=== PATIENT | female | born 1990 | race Caucasian/White ===

== ENCOUNTER 2018-05-29 02:25 | Inpatient (IN) | payer OTHER ==
[2018-05-29 03:04] LABS: BILIRUBIN,URINE NEGATIVE (NEGATIVE); GLUCOSE, URINE (UA) NEGATIVE (NEGATIVE); KETONES,URINE (UA) NEGATIVE (NEGATIVE); LEUKOCYTE ESTERASE, URINE SMALL (NEGATIVE); NITRITE,URINE NEGATIVE (NEGATIVE); OCCULT BLOOD,URINE MODERATE (NEGATIVE); PROTEIN,URINE NEGATIVE (NEGATIVE); UROBILINOGEN,URINE 1 (NORMAL) E.U./dL (NORMAL)
[2018-05-29 03:05] LABS: CLARITY,URINE HAZY (CLEAR)
[2018-05-29 03:13] LABS: BACTERIA,URINE Few /HPF (None Seen); SQUAMOUS EPITHELIAL CELL,UR MOD Squamous (<= Few)
[2018-05-29 03:23] LABS: RUPTURE OF MEMBRANES PLUS POSITIVE (NEGATIVE)
[2018-05-29] MEDS ORDERED: SODIUM CHLORIDE FLUSH 0.9% 10 ML SYRINGE IVP PRN (03:31)
[2018-05-29] MEDS: LACTATED RINGERS 1,000 ML IV SCH ×2 (03:56→10:10)
[2018-05-29] MEDS ORDERED: ONDANSETRON 4 MG/2 ML VIAL IVP PRN ×2 (04:03→05:31)
[2018-05-29 04:18] LABS: BASOPHILS % (AUTO) 0.2 %; EOSINOPHILS % (AUTO) 0.2 %; HGB - HEMOGLOBIN 12.3 g/dL (12.0-16.0); LYMPHOCYTES # (AUTO) 1.9 10^3/uL (1.5-3.5); LYMPHOCYTES % (AUTO) 10.1 %; MEAN CORPUSCULAR HEMOGLOBIN 29.2 pg (27.0-31.0); MEAN CORPUSCULAR HGB CONC 33.4 g/dL (32.0-36.0); MEAN CORPUSCULAR VOLUME 87.4 fL (81.0-99.0); MEAN PLATELET VOLUME 7.2 fL (7.9-10.8); MONOCYTES % (AUTO) 5.2 %; NEUTROPHILS # (AUTO) 15.6 10^3/uL (1.5-6.6); NEUTROPHILS % (AUTO) 84.3 %; PLT - PLATELET COUNT 406 10^3/uL (130-450); RED CELL DISTRIBUTION WIDTH 14.5 % (12.0-15.0); WHITE BLOOD COUNT 18.5 x10^3/uL (4.8-10.8)
[2018-05-29] MEDS ORDERED: fent/BUPIV 2 MCG/0.125% 250 ML EP ONE (04:45)
[2018-05-29] MEDS ORDERED: MINERAL OIL LIGHT 10 ML MC ONE (05:20)
[2018-05-29] MEDS ORDERED: LIDOCAINE 1% 50 ML MDV ONE (05:20)
[2018-05-29] MEDS ORDERED: miSOPROStol 100 MCG TABLET ONE (05:20)
[2018-05-29] MEDS ORDERED: miSOPROStol 200 MCG TABLET ONE (05:21)
[2018-05-29] MEDS ORDERED: diphenhydrAMINE INJ 50 MG/ML VIAL IVP PRN (05:31)
[2018-05-29] MEDS ORDERED: fent/BUPIV 2 MCG/0.125% 250 ML EP PRN (05:31)
[2018-05-29] MEDS ORDERED: NALBUPHINE 10 MG/ML AMP IVP PRN (05:31)
--- NOTE | 2018-05-29 05:34 | ANESTHESIA ---
Pre-Anesthesia VS, & Labs - Diagnosis term labor, IUP - Procedure EDUARDO Vital Signs: Temp Pulse Resp BP Pulse Ox 36.9 C 88 20 139/86 H 100 05/29/18 02:41 05/29/18 02:41 05/29/18 02:41 05/29/18 02:41 05/29/18 02:41 Height 5 ft 6 in Weight (kg) 89.358 kg - NPO Last Fluid Intake: clears t/o night - Is Patient ?: Yes - Lab Results Current Lab Results: Laboratory Tests 05/29/18 04:00: WBC 18.5 H, RBC 4.20, Hgb 12.3, Hct 36.7 L, MCV 87.4, MCH 29.2, MCHC 33.4, RDW 14.5, Plt Count 406, MPV 7.2 L, Neut # (Auto) 15.6 H, Lymph # (Auto) 1.9, [place] # (Auto) 1.0, Eos # (Auto) 0.0, Baso # (Auto) 0.0, Absolute Nucleated RBC 0.00, Nucleated RBC % 0.0 Fish Bones: 05/29/18 04:00 Home Medications and Allergies Active Medications Lactated Ringer's (Lr) 1,000 mls @ 150 mls/hr IV .Q6H40M [facility] Last Admin: 05/29/18 03:56 Dose: 150 mls/hr Ondansetron HCl (Zofran Inj) 4 mg IVP Q4HR PRN PRN Reason: Nausea / Vomiting Last Admin: 05/29/18 04:06 Dose: 4 mg Sodium Chloride (Normal Saline Flush 0.9%) 10 ml IVP PRN PRN PRN Reason: NEEDED PER PROVIDER ORDERS Sodium Chloride (Normal Saline Flush 0.9%) 10 ml IVP 0100,0900,1700 [facility] Allergies/Adverse Reactions: Allergies Allergy/AdvReac Type Severity Reaction Status Date / Time No Known Drug Allergies Allergy Verified 05/29/18 03:42 Anes History & Medical History - Anesthetic History Anesthesia Complications: reports: No previous complications Family history of Anesthesia Complications: Denies Family history of Malignant Hyperthermia: Denies - Medical History Cardiovascular: reports: None Pulmonary: reports: None Gastrointestinal: reports: None Urinary: reports: None Neuro: reports: None Musculoskeletal: reports: None Endocrine/Autoimmune: reports: None Smoking Status: Never smoker - Surgical History Eyes Ears Nose Throat (EENT): Tonsil/Adenoidectomy - Obstetrical History : 1 Exam General: Alert, Oriented x3, Cooperative Dental: WNL Mouth Openin Fingerbreadth Neck Mobility: Normal Mallampati classification: II Plan Anesthesia Type: Epidural Consent for Procedure(s) Verified and Reviewed: Yes Code Status: Attempt Resuscitation ASA classification: 2-Mild systemic disease Is this case an emergency?: No
--- NOTE | 2018-05-29 08:32 | PROVIDER PROGRESS NOTE ---
Subjective - Prog Note Date Prog Note Date: 05/29/18 Prog Note Time: 08:30 - Subjective Subjective: Patient sitting in bed. Family members at bedside. Epidural in place and working. May be feeling some contractions worsening. Objective - Vital Signs/Intake & Output Vital Signs: Vital Signs x48h Temp Pulse Resp BP Pulse Ox 05/29/18 02:41 98.5 F 88 20 139/86 H 100 Intake & Output: Intake & Output 05/26/18 05/27/18 05/28/18 05/29/18 23:59 23:59 23:59 23:59 Output Total 75 Balance -75 - Objective General Appearance: positive: No acute distress Eyes Bilateral: positive: Normal inspection Respiratory: positive: No respiratory distress, Breath sounds nml Cardiovascular: positive: Regular rate & rhythm, No murmur - Lab Results Fish Bones: 05/29/18 04:00 Other Labs: Lab Results x24hrs 05/29/18 05/29/18 05/29/18 Range/Units 04:00 02:47 02:17 WBC 18.5 H (4.8-10.8) x10^3/uL RBC 4.20 (4.20-5.40) 10^6/uL Hgb 12.3 (12.0-16.0) g/dL Hct 36.7 L (37.0-47.0) % MCV 87.4 (81.0-99.0) fL MCH 29.2 (27.0-31.0) pg MCHC 33.4 (32.0-36.0) g/dL RDW 14.5 (12.0-15.0) % Plt Count 406 (130-450) 10^3/uL MPV 7.2 L (7.9-10.8) fL Neut # (Auto) 15.6 H (1.5-6.6) 10^3/uL Lymph # (Auto) 1.9 (1.5-3.5) 10^3/uL [place] # (Auto) 1.0 (0.0-1.0) 10^3/uL Eos # (Auto) 0.0 (0.0-0.7) 10^3/uL Baso # (Auto) 0.0 (0.0-0.1) 10^3/uL Absolute Nucleated RBC 0.00 x10^3/uL Nucleated RBC % 0.0 /100WBC Urine Color YELLOW Urine Clarity HAZY (CLEAR) Urine pH 6.0 (5.0-7.5) PH Ur Specific [place] 1.025 (1.002-1.030) Urine Protein NEGATIVE (NEGATIVE) mg/dL Urine Glucose (UA) NEGATIVE (NEGATIVE) mg/dL Urine Ketones NEGATIVE (NEGATIVE) mg/dL Urine Occult Blood MODERATE H (NEGATIVE) Urine Nitrite NEGATIVE (NEGATIVE) Urine Bilirubin NEGATIVE (NEGATIVE) Urine Urobilinogen 1 (NORMAL) (NORMAL) E.U./dL Ur Leukocyte Esterase SMALL H (NEGATIVE) Urine RBC 6-10 H (0-5) /HPF Urine WBC 6-10 H (0-5) /HPF Ur Squamous Epith Cells MOD Squamous H (<= Few) Urine Bacteria Few (None Seen) /HPF Membranes Rupture POSITIVE A (NEGATIVE) Assessment/Plan - Problem List (1) membrane rupture Impression: 28 yo with a 39w4d IUP SROM Early active labor Epidural in place and working well Leukocytosis Expect Pitocin PRN
[2018-05-29] MEDS ORDERED: OXYTOCIN/SODIUM CHLORIDE 500 ML IV SCH (09:00)
--- NOTE | 2018-05-29 11:27 | HISTORY & PHYSICAL EXAMINATION ---
DATE OF ADMISSION: 05/29/2018 IDENTIFICATION: A 28-year-old G1, P0 with a 39-4/7 week intrauterine . HISTORY OF PRESENT ILLNESS: Patient of the [facility]. Unfortunately, they were on divert. She presented here for complaints of loss of fluid. ROM plus came back positive. heart tones are reassuring and category 1. Patient was admitted to the hospital and given an epidural for pain control. Patient's records show an unremarkable . She has been seen by Dr. Lacey again at [facility]. Her DOT is 06/01/2018 with an LMP of 08/12/2017. She has had good care since 5 weeks' gestation all through to her most recent visit 2 days ago. PAST MEDICAL HISTORY 1. Hypothyroidism in 2012 that has currently resolved. 2. Exercise-induced asthma. 3. Diabetes mellitus. PAST SURGICAL HISTORY: None. ALLERGIES: NO KNOWN DRUG ALLERGIES. MEDICATIONS 1. vitamins. 2. She does have a history of metformin 500 mg b.i.d. that apparently was discontinued in June 2017. SOCIAL HISTORY: She denies any current tobacco, alcohol or illicit drug use. Her is Praveen Polk. PAST OBSTETRICAL HISTORY AND CURRENT AND PAST GYNECOLOGICAL HISTORY: She has not had any abnormal Pap smears or sexually transmitted diseases. FAMILY HISTORY: Noncontributory at this time. REVIEW OF SYSTEMS: Negative unless otherwise stated. PHYSICAL EXAMINATION VITAL SIGNS: Stable. She is afebrile. GENERAL: Patient is a well-developed, well-nourished, female, in no apparent distress. She is alert and oriented x3. CARDIOVASCULAR: Regular. No murmurs or rubs. PULMONARY: Lungs are clear to auscultation bilaterally. ABDOMEN: Gravid, nontender. EFW was 8 pounds. heart tones currently a baseline of 130s. There is category 1 tracing and good accelerations. She is fredy spontaneously approximately every 3 minutes. PELVIC: Initial vaginal examination by OB RN shows she is 3 cm dilated, 50% effaced and -1 station. LABORATORY DATA: Shows that she is gonorrhea, chlamydia both negative. Sequential screen is within normal limits. Blood type is O positive, rubella is immune. Hepatitis B is negative as well as syphilis screening. HIV is nonreactive, as well as hepatitis C. One-hour GTT is 124 and GBS is negative. ASSESSMENT 1. A 28-year-old G1, P0 with a 39-4/7 week intrauterine . 2. Spontaneous rupture of membranes. PLAN 1. We will continue current care with epidural and start Pitocin as indicated. 2. Expect spontaneous vaginal delivery. TD: 05/29/2018 08:44 MTDD
--- NOTE | 2018-05-29 11:50 | HISTORY & PHYSICAL EXAMINATION ---
DATE OF SERVICE: 05/29/2018 Physician: Sanchez Asher MD DIAGNOSES 1. Term , in labor (39 weeks 4 days). 2. Ruptured membranes. 3. Pitocin augmentation. 4. Category 2 EFM tracing HISTORY OF PRESENT ILLNESS: Patient is a 28-year-old primigravida at 39 weeks and 4 days gestation based on last menstrual period and confirmed by our early ultrasound (DOT 06/01/2018). She has had regular care with Dr. Lacey at the [facility]. Thus far, the has proceeded without major problems. Patient is a known asthmatic, but it has been quiescent. She had subfertility and was given metformin trial, but never took it. She spontaneously achieved . Her Glucola challenge test is normal at 124. She has no headaches, right upper quadrant pain or edema. She has no fevers, chills, recent illness or symptoms consistent with urinary tract infection. She has no foul discharge. She describes the leakage as clear and nonfoul, without any significant bleeding. Reference [facility] clinic notes. BASIC OBSTETRIC LABORATORIES: Blood type O positive, antibody screen negative, rubella immune, RPR negative, hepatitis B surface antigen negative. GC/chlamydia negative, integrated screen normal. Urine culture negative. HIV negative. Hepatitis B surface antigen negative, hepatitis C & A screens negative. GBS negative. PAST MEDICAL HISTORY 1. Prior to , she carried a diagnosis of hypothyroid disorder, but recent thyroid panels are normal and she is not taking Synthroid. 2. Exercise asthma. Currently not active. Asthma is only a factor when she experiences bouts of bronchitis or URI. ALLERGIES: NO KNOWN DRUG ALLERGIES. MEDICATIONS: vitamins with iron. FAMILY HISTORY: Positive for diabetes in father. Hypertension, grandfather and grandmother. Epilepsy, father. SOCIAL HISTORY: Works at [employer]. Some college. No drug, tobacco or alcohol use currently. Limited alcohol exposure in early . Negative smoker or drug use. active [employer], has been stationed in [facility] for 4 years. REVIEW OF SYSTEMS CONSTITUTIONAL: Negative. HEENT: Negative. RESPIRATORY: Asthma, as noted above. CARDIAC: Negative. GASTROINTESTINAL: Negative. ENDOCRINE: Prior history of hypothyroidism. HEMATOLOGIC: No easy bleeding tendencies. NEUROLOGIC: Negative. MUSCULOSKELETAL: Negative. SKIN: Negative. PSYCHIATRIC: Negative. PHYSICAL EXAMINATION GENERAL: Alert, oriented, and comfortable in bed. VITAL SIGNS: Temperature 98.5, pulse 88, blood pressure 139/86, respirations 20, pulse oximetry 100%. HEENT: Supple neck. Dentition in good repair. No thyromegaly. No lymphadenopathy. BREASTS: Deferred. LUNGS: Clear to auscultation. Negative wheeze on forced exhalation. CARDIAC: Regular. Grade 2/6 systolic ejection murmur of . No gallop. ABDOMEN: Nondistended, soft, nontender. No organomegaly. No flank pain. UTERUS: Appropriate size, estimate 8 pound fetus in a vertex presentation. Moderate contractions every 3 minutes. EXTERNAL GENITALIA: Normal in appearance. No lesion. VAGINA: Clear amniotic fluid present. CERVIX: Six to 7 cm, +1 station, slight TAYLOR position, 100% effaced, mid position. HEART TRACING: Baseline 140s, moderate variability, occasional variable deceleration -20 with prompt recovery; very rare occurring late decelerations, mild. Cat 2 strip. NEUROLOGIC: Grossly intact. Cranial nerves intact. MUSCULOSKELETAL: No significant edema. SKIN: No obvious lesions. PSYCHIATRIC: Normal mood and affect. LABORATORIES: Admission hemoglobin 12.3, white count 18.5; platelets 406, neutrophilia. Urinalysis: Yellow, hazy, some occult blood and esterase, moderate squamous cells, all probable contamination. ASSESSMENT: This is a term primigravida who is entering active labor with some EFM changes, but nothing sustained or frankly worrisome. She has been ruptured for 10 hours and has no signs of infection such as fever, uterine tenderness, etc. She is currently being augmented with Pitocin at 3 units. Overall, there is forward progress and the head is descending. I believe bony pelvis will accommodate an 8-pound fetus. Discussed labor and particularly delivery in detail with patient and family. She will continue to discuss a delivery plan with Nursing. PLAN 1. Continue Pitocin augmentation. 2. We will monitor her progress of cervical dilatation and descent. 3. Continued EFM tracing monitor. Quality of tracing is very good and internal scalp lead or IUPC is not felt warranted. TD: 05/29/2018 10:45 [facility]
--- NOTE | 2018-05-29 12:46 | PROVIDER PROGRESS NOTE ---
Labor Progress Note - Uterine Monitoring Uterine Monitoring Mode: positive: External toco Contraction Frequency (min/apart): Every 2.5-3 minutes Contraction Intensity: positive: Moderate Uterine Resting Tone: positive: Soft - Monitoring Monitor Mode: positive: External ultrasound Heart Rate Baseline: 130-135 bpm Heart Rate Variability: positive: Moderate (6-25 bmp) Accelerations: positive: Present, 15x15 Decelerations: positive: None Strip Review: positive: Category I - Vaginal Exam Dilation (in cm): 9.5 Effacement (%): 100% Station: 3 Cervical Position: Anterior - Labor Progress Note Labor Progress Note/Additional Text: Epidural is dense and patient has labored down in comfort. For all intents, patient is currently complete. Previously noted decelerations have cleared and EFM tracing category 1 and stable. Began to instruct patient on pushing. Nursing working with family to instruct her coaches. Will begin pushing phase in a short while.
[2018-05-29] MEDS ORDERED: HYDROCORTISONE/PRAMOXINE 10 GM PR PRN (14:11)
[2018-05-29] MEDS ORDERED: diphenhydrAMINE 25 MG CAPSULE PO PRN (14:11)
[2018-05-29] MEDS ORDERED: HYDROcod/ACETAM 5/325 MG TABLET PO PRN (14:11)
[2018-05-29] MEDS ORDERED: WITCH HAZEL/GLYCERIN 1 EACH MED..PAD TOP PRN (14:11)
--- NOTE | 2018-05-29 14:19 | DELIVERY NOTE ---
Delivery Note - Labor Labor: positive: Augmented by oxytocin - Delivery Method Delivery Method: positive: Vacuum assist - Presentation Presentation: positive: Vertex, OA - occiput anterior (Moderate Caputand normal head flexion. Patient spontaneously rotated from TAYLOR to OA during second stage of labor) - Nuchal Cord Nuchal Cord: positive: Present (Very tight nuchal cord, required clamping and transection prior to delivery of the shoulders) - Anesthetic Anesthetic Type: Anesthetic: positive: Lidocaine - 1% plain Volume: positive: Other (15cc) - Amniotic Fluid Description Amniotic Fluid Description: positive: Clear - Vacuum Use Indication for Vacuum Use: positive: Suspicion of immediate or potential compromise (Sustained tachycardia & prior deep decelerations with slow recovery: In the middle part of the second stage patient had deep decelerations to the 80s with slow recovery (145 baseline); the baseline then shifted up to sustain levels of 180 bpm) Type of Vacuum Cup: positive: Other (Kiwe, solid cup) Vacuum Extraction: positive: Successful Number of pop-offs: 0 - Episiotomy Type Episiotomy Type: positive: None - Laceration Laceration: positive: Labial (Labial laceration extending from the majora to just inside the hymenal ring, total distance 3.5 cm and a depth of 1.5 cm. Labial skin very edematous) - Suture Suture Type: positive: Vicryl Suture Size: positive: 2-0, 3-0 - Delivery Outcome Delivery Outcome: positive: Livebirth (Living female weighing 3478 g, (7 pounds 10.6 ounces); Apgars 6 / 5 / 6 / 6 / 7 . Arterial cord pH 7.24 and base excess -3.1; venous cord pH 7.204 and base excess -6.) - [place]: positive: Placed in direct skin contact with mother, Suctioned, Bulb syringe, Stimulated, Warmed, Warmer used, Other (Pediatrics Dr. Lundberg summoned) sex: positive: Female - Cord Cord: positive: 3 vessels (Tight Cord, Factor in delivery) - Placenta Placenta: positive: Intact (Grade 2) - Estimated Blood Loss Estimated Blood Loss (in cc): 300 - Post Delivery Events Post Delivery Events: positive: Other (Pediatrics, Dr. Lundberg summoned to evaluate ) - Delivery Comments (Free Text/Narrative) Delivery Comments (Free Text/Narrative): Patient was allowed to labor down with the aid of a dense epidural and Pitocin augmentation. At 1230 hours, patient complained of pelvic pressure and was found to be essentially complete. We began instructions on appropriate nursing coaching and pushing techniques. Patient began pushing at 1300 hours. The patient pushed with good effort. She brought the head towards the perineum. Head was thought to be a slight TAYLOR with Moderate Caput & good flexion. Pelvis was reassessed and found to be adequate for a 8.0 pound infant. We continued push and stretch method of perineal massage using sterile mineral oil. Initially there were deep decelerations some of which had a slow recovery. The heart tracing deteriorated to sustained tachycardia in the 190s with peaks at times at 210. Variability became minimal. Maternal oxygen was applied. Use of a vacuum extractor to facilitate delivery was explained to the patient including mechanics, risks, benefits and possible alternatives. Patient gave verbal consent for vacuum trial. Respiratory therapy was called to the room as a backup precaution. At the time of vacuum application the head was OA and +3 station. Kiwi vacuum was brought to the field; applied to the flexion point; and pumped into the green zone of negative pressure. On the next series of contractions a moderate amount of traction was applied respecting the axis of the pelvis. Patient pushed with good effort and within 2 contractions the head delivered atraumatically. The head remained flush against the labia. Inspection found a tight nuchal cord. Nuchal cord was doubly clamped and transected. Shoulders were then delivered without difficulty. Delivery time 1353. Infant was on the maternal abdomen initially and then brought to the warmer. A relative trimmed the cord. Cord blood and cord gases were sent. Female genital tract was inspected. Left Labile laceration was found. The vagina was packed with sterile lap pad to provide visualization. The laceration was repaired with 2-0 and 3-0 Vicryl. After which the packing was removed. At 1308 placenta was delivered spontaneously intact. Inspection found it to be 3 vessel without any evidence of infection or abruption. Pitocin was running. Mother father and baby all bonded well. Sponge needle and instrument count was confirmed correct. Dr. Lundberg then was summoned to inspect the baby. Reference is notes.
[2018-05-29] MEDS ORDERED: LACTATED RINGERS 1,000 ML IV SCH (15:00)
[2018-05-29] MEDS: IBUPROFEN 600 MG TABLET PO SCH ×2 (16:16→22:38)
[2018-05-29] MEDS: SODIUM CHLORIDE FLUSH 0.9% 10 ML SYRINGE IVP SCH ×2 (18:43→18:45)
[2018-05-29] MEDS ORDERED: DOCUSATE SODIUM 100 MG CAPSULE PO SCH (21:00)
[2018-05-30] MEDS: DOCUSATE SODIUM 250 MG CAPSULE PO SCH ×3 (00:29→21:30)
[2018-05-30] MEDS: IBUPROFEN 600 MG TABLET PO SCH ×4 (04:38→22:03)
[2018-05-30 06:14] LABS: BASOPHILS % (AUTO) 0.3 %; EOSINOPHILS # (AUTO) 0.1 10^3/uL (0.0-0.7); EOSINOPHILS % (AUTO) 0.3 %; HGB - HEMOGLOBIN 10.4 g/dL (12.0-16.0); LYMPHOCYTES % (AUTO) 12.1 %; MEAN CORPUSCULAR HEMOGLOBIN 30.5 pg (27.0-31.0); MEAN CORPUSCULAR HGB CONC 34.5 g/dL (32.0-36.0); MEAN CORPUSCULAR VOLUME 88.5 fL (81.0-99.0); MONOCYTES # (AUTO) 1.1 10^3/uL (0.0-1.0); MONOCYTES % (AUTO) 6.5 %; NEUTROPHILS # (AUTO) 13.2 10^3/uL (1.5-6.6); NEUTROPHILS % (AUTO) 80.8 %; PLT - PLATELET COUNT 285 10^3/uL (130-450); WHITE BLOOD COUNT 16.4 x10^3/uL (4.8-10.8)
--- NOTE | 2018-05-30 08:50 | PROVIDER PROGRESS NOTE ---
Subjective - General Admit Date: 05/29/18 Procedure Date: 05/29/18 Post Op Days: 1 Procedure Performed: Low vacuum delivery with labial laceration repair - Review of Systems Wound/Incisions: positive: Healing well (Patient still icing edema) Drain Type: None General: positive: No symptoms HEENT: positive: No symptoms Pulmonary: positive: No symptoms Cardiovascular: positive: No symptoms Gastrointestinal: positive: No symptoms, Flatus Genitourinary: positive: Other (Decreased non-foul lochia rubra reported) Musculoskeletal: positive: No symptoms Skin: positive: No symptoms Psychiatric: positive: No symptoms Objective - Patient Data Vital Signs: Vital Signs x48h Temp Pulse Resp BP Pulse Ox 05/30/18 04:30 97.7 F 74 16 104/61 98 Weight: Weight 05/28/18 05/29/18 05/30/18 23:59 23:59 23:59 Weight (kg) 89.358 kg Intake & Output: Intake and Output Totals x24h 05/28/18 05/29/18 05/30/18 23:59 23:59 23:59 Intake Total 1685 Output Total 2700 Balance -1015 - Lab Results Lab Results: 05/30/18 06:10 Other Lab Results: Lab Results x24hrs 05/30/18 Range/Units 06:10 WBC 16.4 H (4.8-10.8) x10^3/uL RBC 3.40 L (4.20-5.40) 10^6/uL Hgb 10.4 L (12.0-16.0) g/dL Hct 30.1 L (37.0-47.0) % MCV 88.5 (81.0-99.0) fL MCH 30.5 (27.0-31.0) pg MCHC 34.5 (32.0-36.0) g/dL RDW 15.0 (12.0-15.0) % Plt Count 285 (130-450) 10^3/uL MPV 7.0 L (7.9-10.8) fL Neut # (Auto) 13.2 H (1.5-6.6) 10^3/uL Lymph # (Auto) 2.0 (1.5-3.5) 10^3/uL [place] # (Auto) 1.1 H (0.0-1.0) 10^3/uL Eos # (Auto) 0.1 (0.0-0.7) 10^3/uL Baso # (Auto) 0.0 (0.0-0.1) 10^3/uL Absolute Nucleated RBC 0.01 x10^3/uL Nucleated RBC % 0.0 /100WBC - Current Medications Current Medications: Current Medications Generic Name Dose Route Start Last Admin Trade Name Freq PRN Reason Stop Dose Admin Hydrocodone Bitart/Acetaminophen 1 tab 05/29/18 14:11 05/29/18 16:16 [place] 5/325 PO 1 tab Q4HR PRN Administration PAIN Docusate Sodium 250 mg 05/29/18 23:45 05/30/18 00:29 Colace 250mg Capsule PO 250 mg BID AHSAN Administration Oxytocin/Sodium Chloride 500 mls @ 1 mls/hr 05/29/18 09:00 05/29/18 22:00 Pitocin/Sodium Chloride IV Infused TITR [facility] Titration Protocol 1 MILLIUNIT/MIN Lactated Ringer's 1,000 mls @ 100 mls/hr 05/29/18 15:00 05/29/18 18:44 Lr IV Not Given .Q10H AHSAN Ibuprofen 600 mg 05/29/18 15:00 05/30/18 04:38 Motrin PO 600 mg Q6H AHSAN Administration Ondansetron HCl 4 mg 05/29/18 04:03 05/29/18 04:06 Zofran Inj IVP 4 mg Q4HR PRN Administration Nausea / Vomiting Sodium Chloride 10 ml 05/29/18 09:00 05/29/18 18:45 Normal Saline Flush 0.9% IVP Not Given 0100,0900,1700 [facility] Witch So/Glycerin 1 each 05/29/18 14:11 05/29/18 22:50 Tucks TOP 1 each QID PRN Administration Hemorrhoids Physical Exam - Physical Exam General: positive: No acute distress, Alert HEENT: positive: Moist mucous membranes Neck: positive: Supple w/out meningeal sx Cardiac: positive: Regular Rate, Regular Rhythm Resipratory: positive: Clear to ausultation myranda Abdomen: positive: Normal Bowel sounds, Other (Pain well controlled with simple Tylenol) Female : positive: Enlarged uterus (16 weeks size uterus nontender firm) Extremities: positive: Normal ROM, No pedal edema Skin: positive: Warm and dry Neurologic: positive: Alert and Oriented X 3, Normal motor/no weakness, Normal Sensation, Normal Speech Assessment/Plan - Assessment/Plan Assessment: Patient experienced a low vacuum extraction due to tracing concerns. Initially was depressed by Apgars but normal cord gases. Pediatrics involved and baby recovering well. Post delivery mother is doing well without any problems. She voids without difficulty and we are awaiting bowel movement. Plan: Continue supportive care and probable discharge tomorrow. Dr. Ruiz informed of patient's condition and plan
--- NOTE | 2018-05-30 15:16 | ANESTHESIA POST OP EVALUATION ---
Anesthesia Post Eval - Post Anesthesia Eval CV Function Including HR & BP: positive: Stable Pain Control: positive: Adequate Anesthesia Complications: positive: None (Patient was satified with her epidural and her level of comfort during labor. I spoke with her today as she stood in her room with family. She denies any headache or back discomfort. I told her to call if she developed a severe headache, however unlikely at this point. I told her some back discomfort for a week or two following an epidural is common. Overall Tiffanie was very satisfied with her care.)
[2018-05-30] MEDS: ACETAMINOPHEN 325 MG TABLET PO PRN ×3 (16:04→21:40)
[2018-05-31] MEDS: ACETAMINOPHEN 325 MG TABLET PO PRN ×2 (03:02→08:31)
[2018-05-31] MEDS: IBUPROFEN 600 MG TABLET PO SCH ×2 (04:36→10:41)
[2018-05-31 08:17] VITALS: BP 108/64
[2018-05-31] MEDS: DOCUSATE SODIUM 250 MG CAPSULE PO SCH (08:32)
--- NOTE | 2018-05-31 10:29 | PROVIDER PROGRESS NOTE ---
Subjective - Prog Note Date Prog Note Date: 05/31/18 Prog Note Time: 10:25 - Subjective Pt reports feeling: Improved (Painb is 2/10. passing flatus. no Bowel movement yet.) Objective - Vital Signs/Intake & Output Reviewed Vital Signs: Yes Vital Signs: Vital Signs x48h Temp Pulse Resp BP Pulse Ox 05/31/18 08:16 36.6 C 78 16 108/64 98 05/31/18 03:40 36.7 C 72 15 100/62 98 Intake & Output: Intake & Output 05/28/18 05/29/18 05/30/18 05/31/18 23:59 23:59 23:59 23:59 Intake Total 1685 500 350 Output Total 2700 Balance -1015 500 350 - Objective General Appearance: positive: No acute distress, Alert Respiratory: positive: Chest non-tender, No respiratory distress, Breath sounds nml Cardiovascular: positive: Regular rate & rhythm, No murmur, No gallop Abdomen: positive: Non-tender, Nml bowel sounds, Mass (U-1) Extremities: negative: Calf tenderness, Mika's sign/cords - Lab Results Fish Bones: 05/30/18 06:10 Assessment/Plan - Problem List (1) Vacuum extractor delivery, delivered Impression: Mother and baby are doing well. Discharge to home. Discharge medications Motrin 800 Colace 100 mg reviewed S/S of infection. Discussed contraception
--- NOTE | 2018-05-31 10:43 | Discharge Plan ---
Discharge Plan Disposition: 01 Home, Self Care Condition: Good Diet: Regular Activity Restrictions: pelvic rest 6 weeks Shower Restrictions: No Driving Restrictions: No Weight Bearing: Full Weight No Smoking: If you smoke, Please STOP! Call for help.
--- NOTE | 2018-05-31 18:45 | DISCHARGE SUMMARY ---
Physician: Sanchez Ruiz MD DATE OF ADMISSION: 05/29/2018 DATE OF DISCHARGE: 05/31/2018 ADMITTING DIAGNOSES 1. A 28-year-old G1, P0, 39.7 weeks. 2. Spontaneous rupture of membranes. 3. Early labor. DISCHARGE DIAGNOSES 1. A 28-year-old G1, P0, 39.7 weeks. 2. Spontaneous rupture of membranes. 3. Early labor. 4. Tight nuchal cord. 5. Delivery live female infant, Apgars 6,5,6,6,7, weight 7 pounds 6 ounces. PROCEDURES 1. Epidural. 2. Pitocin augmentation. 3. Vacuum-assisted vaginal delivery. 4. Episiotomy with repair. PRESENTING HISTORY: Patient is a 28-year-old G1, P0 female who was 39.7 weeks . She has been seen by the [facility] throughout her entire . She had early visits, however, because they were on divert she presented to our institution for delivery. She was noted to have a rupture of membranes. She had a category 1 strip. LABORATORIES: CBC on admission showed a white count of 18.5 thousand, hemoglobin was 12.3, hematocrit 36.7, platelets were 206. Delivery post- delivery, her white count decreased to 16.4, hemoglobin fell to 10.4, hematocrit of 30.1, platelets were 285. Cord gases on the showed a pH of 7.24. HOSPITAL COURSE: Patient was admitted. She had an epidural placed for analgesia. She had Pitocin augmentation. Because of tachycardia and deep decelerations, a vacuum was placed at +3, and a live female was delivered. At time of delivery, there was a tight nuchal cord that had to be clamped and divided prior to delivery of the shoulders. Following delivery, the female was placed on the maternal chest, but the Apgars were 6,5,6,6,7. The computer publisher was summons to assist in the care of the . Her course has been unremarkable. She is taking a regular diet. She has adequate pain control. She is being discharged home today with instructions to follow up in 2, and then in 4 weeks. DISCHARGE MEDICATIONS 1. Motrin. 2. Colace. We have discussed , its advantages. We have also reviewed the need for contraception. TD: 05/31/2018 10:48 MTDD
== END 2018-05-31 12:25 | disposition home or self-care (01) | DRG 807 ==
LOC: WFO 02:25 → FBP 02:29 → WFO 03:30 → FBP 03:31
PROVIDERS: ADMIT Obstetrics & Gynecology; ATTEND Obstetrics & Gynecology
PROC: 10D07Z6 Extraction of Products of Conception, Vacuum, Via Natural or Artificial Opening (ICD-10-PCS; principal; 2018-05-29)
PROC: 0HQ9XZZ Repair Perineum Skin, External Approach (ICD-10-PCS; 2018-05-29)
DX: O42.02 Full-term premature rupture of membranes, onset of labor within 24 hours of rupture (principal); Z37.0 Single live birth; O76 Abnormality in fetal heart rate and rhythm complicating labor and delivery; O69.1XX0 Labor and delivery complicated by cord around neck, with compression, not applicable or unspecified; O70.0 First degree perineal laceration during delivery; O24.92 Unspecified diabetes mellitus in childbirth; O99.52 Diseases of the respiratory system complicating childbirth; J45.990 Exercise induced bronchospasm; Z86.39 Personal history of other endocrine, nutritional and metabolic disease; Z3A.39 39 weeks gestation of pregnancy
CPT/HCPCS: 36415; 81001; 84112; 85025; 99213